=== PATIENT | female | born 1960 | race Two or more races ===

== ENCOUNTER 2021-02-21 15:13 | Emergency (ER) | payer OTHER ==
[~2021-02-21] VITALS: Ht 165.1 cm; Wt 45.8 kg
[2021-02-21] MEDS ORDERED: SODIUM CHLORIDE 0.9% 500 ML IV ONE (15:45)
[2021-02-21] MEDS ORDERED: ONDANSETRON HCL 4 MG/2 ML VIAL IV ONE (15:45)
[2021-02-21 16:26] LABS: Basophils # (auto) 0.2 10 ^3/uL (0-0.2); Basophils % (auto) 1.4 % (0.0-2.0); Eosinophils # (auto) 0.2 10 ^3/uL (0-0.8); Eosinophils % (auto) 1.3 % (0.0-7.0); Hematocrit 34.5 % (36.0-46.0); Hemoglobin 12.2 g/dL (12.2-16.2); Lymphocytes # (auto) 1.7 10 ^3/uL (0.4-5.4); Lymphocytes % (auto) 13.4 % (10.0-50.0); Mean Corpuscular Hemoglobin 33.3 pg (28.0-32.0); Mean Corpuscular Hgb Conc. 35.4 g/dL (32.0-36.0); Mean Corpuscular Volume 93.9 fL (80.0-100.0); Monocytes # (auto) 0.6 10 ^3/uL (0-1.3); Neutrophils # (auto) 10.2 10 ^3/uL (1.6-8.6); Neutrophils % (auto) 78.9 % (37.0-80.0); Platelet Count (auto) 319 10^3/uL (140-450); Red Blood Cells 3.67 10^6/uL (4.0-5.20); White Blood Cell 12.9 10^3/uL (4.4-10.8)
[2021-02-21 16:49] LABS: Albumin 3.2 g/dL (3.4-5.0); BUN/Creatinine Ratio 3.9; Calcium 9.2 mg/dL (8.5-10.1); Magnesium 2.5 mg/dL (1.6-2.6)
[2021-02-21 16:54] LABS: Bilirubin, Total 0.2 mg/dL (0.2-1.0); Total Protein 7.1 g/dL (6.4-8.2)
[2021-02-21 17:17] LABS: Potassium 2.7 mmol/L (3.5-5.1)
[2021-02-21] MEDS ORDERED: POTASSIUM CHL 20 Meq TABLET PO ONE (18:15)
[2021-02-22] MEDS ORDERED: ACETAMINOPHEN 500 MG TAB PO ONE (03:30)
[2021-02-22 06:20] VITALS: BP 118/64
== END 2021-02-22 06:30 | disposition short-term general hospital (02) ==
LOC: EDBD 15:13 → ER 15:13
DX: E87.6 Hypokalemia (principal); E87.1 Hypo-osmolality and hyponatremia; E87.8 Other disorders of electrolyte and fluid balance, not elsewhere classified; K59.00 Constipation, unspecified; R55 Syncope and collapse; R53.1 Weakness; I13.2 Hypertensive heart and chronic kidney disease with heart failure and with stage 5 chronic kidney disease, or end stage renal disease; E11.22 Type 2 diabetes mellitus with diabetic chronic kidney disease; N18.6 End stage renal disease; I50.9 Heart failure, unspecified; Z99.2 Dependence on renal dialysis; Z90.49 Acquired absence of other specified parts of digestive tract; Z90.89 Acquired absence of other organs; Z87.891 Personal history of nicotine dependence; Z20.822 Contact with and (suspected) exposure to COVID-19
CPT/HCPCS: 36415; 70450; 71045; 74176; 80053; 83735; 84484; 85025; 85049; 87426; 93005